=== PATIENT | male | born 1980 | race Caucasian/White ===

== ENCOUNTER 2021-08-19 10:06 | Emergency (ER) | payer BC | END 2021-08-19 17:25 | disposition short-term general hospital (02) | LOC: ER1 10:06 | DX: S32.421A Displaced fracture of posterior wall of right acetabulum, initial encounter for closed fracture (principal); S93.401A Sprain of unspecified ligament of right ankle, initial encounter; S80.01XA Contusion of right knee, initial encounter; Z23 Encounter for immunization; F17.200 Nicotine dependence, unspecified, uncomplicated; I10 Essential (primary) hypertension; W22.8XXA Striking against or struck by other objects, initial encounter; Y93.9 Activity, unspecified | CPT/HCPCS: 72192; 73502; 73564; 73590; 73610; 73630; 90715; 99284 ==